=== PATIENT | male | born 1940 | race Two or more races ===

== ENCOUNTER 2023-01-29 19:55 | Emergency (ER) | payer OTHER ==
[~2023-01-29] VITALS: Ht 170.2 cm; Wt 57.7 kg
[2023-01-29] MEDS ORDERED: SODIUM CHLORIDE 0.9% 1,750 ML IV ONE (21:45)
[2023-01-29 22:24] LABS: Basophils # (auto) 0.1 10 ^3/uL (0-0.2); Basophils % (auto) 0.5 % (0.0-2.0); Eosinophils # (auto) 0.1 10 ^3/uL (0-0.8); Eosinophils % (auto) 0.3 % (0.0-7.0); Hematocrit 32.1 % (41.0-53.0); Hemoglobin 10.3 g/dL (13.5-17.5); Lymphocytes # (auto) 1.3 10 ^3/uL (0.4-5.4); Lymphocytes % (auto) 7.8 % (10.0-50.0); Mean Corpuscular Hemoglobin 29.1 pg (28.0-32.0); Mean Corpuscular Hgb Conc. 32.1 g/dL (32.0-36.0); Mean Corpuscular Volume 90.7 fL (80.0-100.0); Monocytes # (auto) 0.7 10 ^3/uL (0-1.3); Monocytes % (auto) 4.2 % (0.0-12.0); Neutrophils # (auto) 14.2 10 ^3/uL (1.6-8.6); Neutrophils % (auto) 87.2 % (37.0-80.0); Red Blood Cells 3.55 10^6/uL (4.5-5.90); Red Cell Distribution Width 17.4 % (11.8-14.3); White Blood Cell 16.3 10^3/uL (4.4-10.8)
[2023-01-29 22:30] LABS: Alanine Aminotransferase 13 U/L (7-40); Albumin 3.1 g/dL (3.2-4.8); Alkaline Phosphatase 192 U/L (46-116); Anion Gap 5 (5-15); Aspartate Aminotransferase 19 U/L (13-40); BUN/Creatinine Ratio 54.5 (10.0-20.0); Bilirubin, Total 0.4 mg/dL (0.2-1.0); Blood Urea Nitrogen 36 mg/dL (9-23); Calcium 8.2 mg/dL (8.7-10.4); Carbon Dioxide 26 mmol/L (20-30); Chloride 110 mmol/L (98-107); Glucose 89 mg/dL (74-106); Potassium 4.4 mmol/L (3.5-5.1); Sodium 141 mmol/L (136-145); Total Protein 5.4 g/dL (5.7-8.2)
[2023-01-29] MEDS: ACETAMINOPHEN 325 MG TAB PO PRN (22:38)
[2023-01-29 22:46] LABS: Blood Alcohol < 3.0 mg/dL (<10); Magnesium 1.5 mg/dL (1.6-2.6)
[2023-01-29 22:48] LABS: Creatine Kinase IFCC 24 U/L (46-171)
[2023-01-29] MEDS ORDERED: IOHEXOL 350 MG/ML 100ML IJ ONE (23:00)
[2023-01-29 23:07] LABS: Erythrocyte Sedimentation Rate 29 mm/hr (0-20)
[2023-01-29 23:48] LABS: INR 1.18 (0.9-1.15); Partial Thromboplastin Time 31.9 SEC (24.5-34.5); Prothrombin Time 12.3 sec (9.3-11.8)
[2023-01-30 01:51] LABS: CRP High Sensitivity 2.44 mg/dL (<1.0)
[2023-01-30] MEDS ORDERED: SODIUM CHLORIDE 0.9% 1,000 ML IV ONE (02:45)
[2023-01-30] MEDS ORDERED: cefTRIAXone 1GM/50ML D5W 50 ML IV ONE (03:00)
[2023-01-30] MEDS: MAGNESIUM SULFATE 1GM/100ML 100 ML IV SCH ×4 (03:02→06:37)
[2023-01-30 03:04] LABS: Prostate Specific Antigen 1.05 ng/mL (0.0-4.0)
[2023-01-30 04:34] LABS: Carcinoembryonic Antigen 215.18 ng/mL (<=5.0)
[2023-01-30] MEDS: ACETAMINOPHEN 325 MG TAB PO PRN (04:40)
[2023-01-30 05:06] LABS: Amphetamine Screen, Urine Neg (NEGATIVE)
[2023-01-30 05:07] LABS: Barbiturate Scree,Urine Neg (NEGATIVE); Benzodiazephine Screen, Urine Neg (NEGATIVE); Cannabinoid Screen, Urine Neg (NEGATIVE); Cocaine Screen, Urine Neg (NEGATIVE); Opiate Scree,Urine Neg (NEGATIVE); Phencyclidine Screen, Urine Neg (NEGATIVE)
[2023-01-30 05:19] LABS: Basophils # (auto) 0 10 ^3/uL (0-0.2); Basophils % (auto) 0.2 % (0.0-2.0); Eosinophils # (auto) 0.1 10 ^3/uL (0-0.8); Eosinophils % (auto) 0.6 % (0.0-7.0); Hemoglobin 9.6 g/dL (13.5-17.5); Lymphocytes # (auto) 2.1 10 ^3/uL (0.4-5.4); Lymphocytes % (auto) 12.4 % (10.0-50.0); Mean Corpuscular Hgb Conc. 32.1 g/dL (32.0-36.0); Mean Corpuscular Volume 90.4 fL (80.0-100.0); Monocytes # (auto) 0.8 10 ^3/uL (0-1.3); Monocytes % (auto) 4.7 % (0.0-12.0); Neutrophils # (auto) 14.1 10 ^3/uL (1.6-8.6); Neutrophils % (auto) 82.1 % (37.0-80.0); Red Blood Cells 3.32 10^6/uL (4.5-5.90); Red Cell Distribution Width 17.1 % (11.8-14.3); White Blood Cell 17.2 10^3/uL (4.4-10.8)
[2023-01-30 05:29] LABS: Urine Bacteria NONE SEEN /hpf (None Seen); Urine Blood Negative /uL (Negative); Urine Clarity Clear (Clear); Urine Color Colorless (Yellow); Urine Mucus FEW (None Seen); Urine Protein, UAD Negative (Negative); Urine Specific Gravity 1.043 (1.001-1.035); Urine Urobilinogen Normal (Negative); Urine WBC <1 /hpf (0 - 3)
[2023-01-30 05:30] VITALS: PULSE 69; RESP 18; O2SAT 94
[2023-01-30 07:48] LABS: COVID19 ANTIGEN SOFIA FIA NEGATIVE (NEGATIVE)
[2023-01-30 08:35] VITALS: RESP 18
[2023-01-30] MEDS ORDERED: DOCU-94 PO (10:25)
[2023-01-30] MEDS ORDERED: ACET-1882 PO (10:25)
[2023-01-30 11:12] VITALS: BP 127/70; PULSE 68; RESP 17; O2SAT 95
[2023-01-30] MEDS ORDERED: MAGN400T40 PO (11:45)
[2023-01-30 12:45] VITALS: TEMP 97.4
== END 2023-01-30 13:54 | disposition home or self-care (01) ==
LOC: EDBD 19:55 → ER 20:07
DX: C34.12 Malignant neoplasm of upper lobe, left bronchus or lung (principal); C34.11 Malignant neoplasm of upper lobe, right bronchus or lung; C79.9 Secondary malignant neoplasm of unspecified site; Z79.899 Other long term (current) drug therapy; Z98.890 Other specified postprocedural states
CPT/HCPCS: 36415; 70450; 71045; 71260; 74177; 80053; 80307; 80320; 81001; 82378; 82550; 83605; 83735; 83880; 84153; 84484; 85025; 85379; 85610; 85652; 85730; 86141; 86301; 87040; 87086; 87426; 93005; 93970; 96361; 96365; 96366; 96368; 99285; J0696; J3475; J7030; Q9967